=== PATIENT | male | born 1940 | race Caucasian/White ===

== ENCOUNTER → 2018-04-12 | Outpatient (CLI) | payer MEDICARE, BC ==
--- NOTE | 2018-04-12 09:01 | CT ---
EXAMINATION TYPE: CT lower extremity LT wo con, Prophecy protocol DATE OF EXAM: 04/12/2018 COMPARISON: None HISTORY: [age]-year-old male with left ankle pain, pre op planning TECHNIQUE: Contiguous axial scanning of the knee followed by the ankle without IV contrast. Coronal a nd sagittal reconstructions performed for preoperative planning purposes. CT DLP: 561 mGycm Automated exposure control for dose reduction was used. FINDINGS: Imaging performed for preoperative planning purposes. Knee: Incidental partially visualized lipoma in the upper medial gastrocnemius musculature measuring at andrae st 4.1 x 2.3 cm, partially visualized. There is suggestion of some bicompartmental joint space narrow ing, greater in the medial compartment and suggestion of some joint space narrowing in the lateral pa tellofemoral compartment. No knee joint effusion or Kennedy's cyst seen. Ankle: End-stage degenerative joint space narrowing with [id number] abutment, subchondral sclerosis, and s ubchondral cystic change at the tibiotalar joint. Multiple loose bodies are present posteriorly measu ring up to 1.1 cm. There is lesser degree of degenerative joint space narrowing along the middle subt alar joint as well. Corticated ossific fragments below the anterior colliculus of the medial malleolus suggesting sequela of prior deltoid ligament injury Underlying tibiotalar joint effusion. Osteopenia. IMPRESSION: PREOPERATIVE CT OF THE LEFT ANKLE AND KNEE, PROPHECY PROTOCOL, WITH DETAILS OF THE KNEE AND ANKLE ABOVE.
== END | disposition home or self-care (01) ==
LOC: RADCTMAIN 08:01
PROVIDERS: ATTEND Orthopaedic Surgery
DX: Z01.818 Encounter for other preprocedural examination (principal); M19.072 Primary osteoarthritis, left ankle and foot; M25.872 Other specified joint disorders, left ankle and foot; M24.072 Loose body in left ankle; M85.872 Other specified disorders of bone density and structure, left ankle and foot

== ENCOUNTER → 2018-05-24 | Outpatient (CLI) | payer MEDICARE, BC | END | disposition home or self-care (01) | LOC: LABPAT 14:39 | PROVIDERS: ATTEND Orthopaedic Surgery | DX: Z01.812 Encounter for preprocedural laboratory examination (principal) | CPT/HCPCS: 87070 ==

== ENCOUNTER 2018-05-30 06:34 | Inpatient (IN) | payer MEDICARE, BC ==
[2018-05-21 17:26] VITALS: BMI 31.8
[~2018-05-30 06:34] MED LIST: DEXAMETHASONE SOD PHOSPHATE 10 MG/ML 1 ML VIAL IV ONE; LIDOCAINE 1% 20 ML VIAL (10MG/ML) FOR IV START INTRADERMA PRN; MIDAZOLAM 2 MG/2 ML VIAL IV PRN; ONDANSETRON 4 MG/2 ML VIAL IVP ONE; SCOPOLAMINE 1.5MG/72HR PATCH TRANSDERM ONE; ceFAZolin IN SWFI 2 GM/20 ML SYRINGE IVP ONE
[2018-05-30] MEDS: LACTATED RINGERS 1,000 ML IV SCH (07:35)
[2018-05-30] MEDS ORDERED: HYDROcodone/APAP 5-325MG 1 EACH TAB PO PRN (08:25)
[2018-05-30] MEDS ORDERED: ONDANSETRON 4 MG/2 ML VIAL IVP PRN (08:25)
[2018-05-30] MEDS ORDERED: MAGNESIUM HYDROXIDE 2,400 MG/10 ML CUP PO PRN (08:25)
[2018-05-30] MEDS ORDERED: HYDROmorphone 1 MG/ML 1 ML SYRINGE IVP PRN (08:25)
[2018-05-30] MEDS ORDERED: NALOXONE 0.4 MG/ML 1 ML VIAL IV PRN (08:25)
[2018-05-30] MEDS ORDERED: ROPIVACAINE 5 MG/ML 30 ML VIAL ONE (08:32)
[2018-05-30] MEDS ORDERED: fentaNYL (PF) 50 MCG/ML 2 ML AMP ONE (08:32)
[2018-05-30] MEDS ORDERED: ePHEDrine SULFATE/0.9% NACL/PF 50 MG/5 ML SYRINGE IV ONE (08:32)
[2018-05-30] MEDS ORDERED: ROCURONIUM BROMIDE 10 MG/ML 10 ML VIAL IV ONE (08:32)
[2018-05-30] MEDS ORDERED: PROPOFOL 10 MG/ML 20 ML VIAL IV ONE (08:32)
--- NOTE | 2018-05-30 10:03 | P.ONQ ---
Anesthesiology Proc Note - PNB - Peripheral Nerve Block Performed Left Popliteal Single Time Out Performed: Yes Indication: Acute Post-Operative Pain, Analgesia, Requested by physician Sedation Type: Sedate with meaningful contact maintained Preparation: Sterile Prep Position: Supine Catheter: None Needle Size: 100mm (4") Needle Gauge: 21 Technique: Ultrasound Injectate: 0.5% Ropivacaine (see comment for volume) Blood Aspirated: No Pain Paresthesia on Injection Noted: No Resistance on Injection: Normal Events: Uneventful and Well Tolerated (ropi 20 ml)
--- NOTE | 2018-05-30 11:03 | FL ---
Fluoroscopy HISTORY: Ankle arthroplasty 1 minute 34 seconds fluoroscopy time supplied to the referring clinician. 10 intraoperative C-arm im ages document the procedure. See dictated report from orthopedic surgery.
--- NOTE | 2018-05-30 11:04 | XR ---
Left ankle HISTORY: Arthroplasty 10 intraoperative C-arm images document the procedure.
[2018-05-30] MEDS: HYDROmorphone 0.5 MG/0.5 ML SYRINGE IVP PRN ×2 (11:33→11:51)
[2018-05-30] MEDS ORDERED: LACTATED RINGERS 1,000 ML IV ONE ×2 (11:38)
--- NOTE | 2018-05-30 11:42 | P.OP ---
Date of Procedure: 05/30/18 Preoperative Diagnosis: 1. Left end-stage ankle arthritis 2. Left gastrocnemius equinus contracture Postoperative Diagnosis: Same Procedure(s) Performed: 1. Left total ankle arthroplasty with implant 2. Left gastrocnemius recession 3. Left application of short leg splint by physician Implants: SetJam Infinity Total ankle replacement size 4 tibia, size 3 INBONE talus Anesthesia: GETA, regional Surgeon: Galdino Beltran Estimated Blood Loss (ml): 10 IV fluids (ml): 450 Pathology: none sent Condition: stable Disposition: PACU Indications for Procedure: The patient is a very pleasant 77-year-old male with a long-standing history of problems with his left ankle. He's been treated nonsurgically with activity modification, bracing, anti-inflammatory pain medications, and corticosteroid injections. He also recently had an ankle arthroscopy by a hedis abstractor with minimal improvement in his symptoms. He was noted to have end-stage arthritic changes in the ankle. He came to discuss further treatment with me. We discussed continued nonsurgical treatment versus surgery. He requested surgery. Due to the complete loss of joint space, minimal deformity, and excellent preoperative range of motion I recommended a total ankle replacement versus an ankle fusion. We discussed the potential risks and benefits of both procedures. The patient agreed and requested a total ankle replacement. We discussed the potential risks and complications of surgery including but not limited to risk of anesthesia, superficial infection, deep infection, delayed wound healing, risk of intraoperative fracture, risk of postoperative fracture, risk of postoperative implant subsidence, risk of aseptic loosening, risk of failure of the implant, risk of deep infection requiring implant removal and antibiotic spacer, risk of stiffness, risk of chronic pain, risk of chronic swelling, risk of need for further surgery, risk of damage to local blood vessels or nerves, risk of DVT, risk of PE, risk of other medical complications , and possibly loss of life or limb. The patient voiced his understanding of this and provided his verbal and written consent to go forward with surgery. Operative Findings: The final fluoroscopic images after the implants and final poly had been inserted showed a radiolucent line in the distal metaphysis of the tibia on the mortise view. On clinical inspection there is a nondisplaced fracture on the distal medial metaphysis of the tibia. The tibial component was completely stable. I took a complete set of fluoroscopic images in multiple planes of the tibia from the ankle to the knee and no displacement was seen. Since the fracture was nondisplaced and the implant was stable I elected to leave the fracture alone. Following surgery I awknowledged the fracture with the patient' s family Description of Procedure: The patient was identified in preoperative holding and the correct left ankle was marked with my initials. I reviewed the consent form with the patient and all of his questions were answered. A preoperative popliteal and saphenous nerve block were placed. The patient was then brought back to the operating room. He was positioned on the OR table where general anesthetic and preoperative antibiotics were administered. A tourniquet was applied to the proximal aspect of the left thigh. The right leg was secured to the table with foam and tape. A bump was placed under the left buttock internally rotating the leg to neutral. A ramp was placed on the left leg to facilitate imaging. The remaining bony prominences were well-padded. A timeout was then performed identifying the correct patient, operative extremity, and procedure. The patient's leg was elevated, exsanguinated with an Esmarch, and the tourniquet was inflated to 250 mmHg. I began by performing a gastrocnemius recession. A 3 cm longitudinal incision was marked out 1 thumb breadth posterior to the tibia at the distal medial muscle belly of the gastrocnemius. Skin incision was made with a scalpel. Dissection was carried down carefully through subcutaneous tissue with tenotomy scissors. The superficial fascia was incised longitudinally in line with the skin incision. I bluntly developed the interval between the gastrocnemius aponeurosis and superficial fascia. The sural nerve was seen adherent to the superficial fascia. I then bluntly developed the interval between the gastrocnemius aponeurosis and soleus fascia. Modified right angle retractors were placed in both of these intervals isolating the gastrocnemius aponeurosis. I then sharply released the gastrocnemius aponeurosis from medial to lateral in its entirety. Following release there is a significant increase in dorsiflexion of the ankle. The sural nerve was identified and intact. The wound was then copiously irrigated and closed in layers. Attention was then turned to the ankle. A standard 10 mm anterior incision was marked out over the anterior aspect of the ankle. Skin incision was made a scalpel and I dissected carefully down to the subcu tennis tissue with tenotomy scissors. The superficial peroneal nerve was identified and carefully retracted. The extensor retinaculum was incised longitudinally in line with the skin incision area interval between the tibialis anterior and extensor hallucis longus tendon is identified and carefully dissected and exploited. Crossing vascular structures were controlled with electrocautery. An anterior arthrotomy was made to the ankle joint. There was a large amount of clear- colored synovial fluid. The visualized portion of the talar dome was completely devoid of articular cartilage. The soft tissue over the anterior aspect of the distal tibia was carefully removed with a scalpel and a small curet. Once all of the soft tissues off the distal tibia the custom cutting guide was held in place and pinned. The alignment was checked on a mortise view with fluoroscopy and compared to the preoperative templating. Once the cutting guide was deemed to be in acceptable position the remaining 3 pins were placed. The initial drill guide was then placed over the K wires and a drill was used to drill over the corners. A size 4 cutting block was then placed and secured. Position of the cutting block was verified on a mortise and lateral x- ray. Pins were placed in the gutters. The ankle was held at neutral and the talar pins were placed. Using a small microsagittal saw including saline 3 cuts were made in the tibia and one cut was made in the talar dome. All pins except more proximal tibia pins were removed and the cutting block was removed. The cut surface of the talar dome was removed. It was a small amount of bone in the posterior medial talus which was brought flush to the remaining cut surface of the talus with a saw. The cut tibial portion was then removed in one solid piece. The wound was copiously irrigated. Both the medial and lateral gutter were debrided. A size 4 tibial tray was then placed over the pins and gently levered into place with a lamina mother repairer. Its position was verified under lateral fluoroscopic shot. The broaches were then used to create a single posterior tract and to anterior approach rolls. A size 6 no meter poly-is then placed and a size 3 INBONE talus was inserted. The talar trial was manipulated until it sat in the correct position and was verified on a lateral and mortise fluoroscopic view. It was pinned into place. The anterior pegs were drilled. The ankle was plantar flexed and a pin was placed for the central stem of the talar component. The 2 smaller anterior pins were removed and the size 3 talar trial was removed. A reamer was used to create a path for the small central stem of the talar component. At this point the wound was copiously irrigated once again. The final tibia component was tapped into place. A protector was placed over the final tibial tray and the talar component was gently tapped into place until was fully seated. A size 6 mm trial poly-was placed and the ankle felt stable. A final 6 mm poly-was gently inserted. On inspection the ankle appeared to be balanced and both implants were stable and fully seated. Final lateral images showed a well-seated and stable appearing tibial and talar component. Maximum dorsiflexion and plantarflexion images were taken. A final mortise view was taken. There was a radial lucent line over the distal metaphysis of the tibia concerning for a fracture. I inspected the distal tibia and there did appear to be a nondisplaced fracture in the distal medial metaphysis of the tibia. I closely examined the tibial component which appeared to be completely stable. I used a [place] elevator at the interface between the implant and the tibia and there did not appear to be any evidence of loosening. Fluoroscopic images were taken in the ankle up to the knee including the whole tibia. On the lateral view the fracture was not visible and there did not appear to be any extension proximally. Due to the implant being stable and the fracture being completely nondisplaced I elected to treat it nonoperatively with observation. I discussed this with the family following surgery. The wound was then copiously irrigated. The capsule was closed with an interrupted 0 Vicryl. The retinaculum over the anterior extensor tendons were closed with a running 0 Vicryl. The deep subcu was reapproximated using 3-0 Monocryl. The skin was closed using 3-0 nylon Johnnygower modification of the Donati stitch area did brown quarter inch Steri-Strips were placed in between the stitches. A sterile dressing consisting of Betadine soaked Adaptic, 4 x 4, and web roll was applied. A well-padded bulky Haines splint was placed with the ankle at neutral. The tourniquet was let down for total tourniquet time of 88 minutes. The patient was then awoken from his anesthetic, transferred to a gurney, and brought to PACU without the procedure well. Plan: The patient is going to be admitted for pain control, IV antibiotics, a medicine consultation, physical therapy, and discharge planning. He is to remain strictly nonweightbearing on his left leg in his splint at all times. He will receive DVT prophylaxis with Lovenox while in-house he'll be discharged home on aspirin. He will need follow-up in the office in 2 weeks for splint removal, wound check, and 3 nonweightbearing views of the ankle.
[2018-05-30] MEDS: HYDROcodone/APAP 5-325MG 1 EACH TAB PO PRN ×2 (15:22→23:03)
[2018-05-30] MEDS: ENOXAPARIN 40 MG/0.4 ML SYRINGE SQ SCH (15:27)
--- NOTE | 2018-05-30 16:47 | P.CONS ---
History of Present Illness - Reason for Consult History of atrial fibrillation. - History of Present Illness Patient is a pleasant 77-year-old gentleman underwent left ankle arthroplasty. Patient's x-ray underwent surgery. Patient is comparing up in the surgical site area which is presently covered with a bandage. Patient denied any fever chills nausea vomiting abdominal pain. Patient does have history of irregular heartbeat as per the but not on any anticoagulation. Patient is on aspirin and Plavix although his cardiac catheterization and stent placement was more than 8 years ago. Patient's Plavix is on hold since last week for surgery. I do not have an EKG available on exam he has regular heart rhythm will obtain an EKG probably get medical records from his [facility] representative clinic. Patient will need to be on anticoagulation if he has history of A. fib. Patient is presently on Lovenox 40 mg subcutaneous daily which is DVT prophylactic dose. Was reinitiated back on aspirin. Patient is on sotalol and lisinopril. I'll get medical records from his [facility] representative clinic unsure why he is not on anticoagulation. We'll also get the opinion from cardiology regarding his long-term anticoagulation. Review of Systems REVIEW OF SYSTEMS: CONSTITUTIONAL: No fever, no malaise, no fatigue. HEENT: No recent visual problems or hearing problems. Denied any sore throat. CARDIOVASCULAR: No chest pain, orthopnea, PND, no palpitations, no syncope. PULMONARY: No shortness of breath, no cough, no hemoptysis. GASTROINTESTINAL: No diarrhea, no nausea, no vomiting, no abdominal pain. Normoactive bowel sounds. NEUROLOGICAL: No headaches, no weakness, no numbness. HEMATOLOGICAL: Denies any bleeding or petechiae. GENITOURINARY: Denies any burning micturition, frequency, or urgency. MUSCULOSKELETAL/RHEUMATOLOGICAL: Denies any joint pain, swelling, or any muscle pain. ENDOCRINE: Denies any polyuria or polydipsia. The rest of the 14-point review of systems is negative. Past Medical History Past Medical History: Coronary Artery Disease (CAD), Hearing Disorder / Deafness , Hyperlipidemia, Osteoarthritis (OA) Additional Past Medical History / Comment(s): LT ANKLE PROB. History of Any Multi-Drug Resistant Organisms: None Reported Past Surgical History: Appendectomy, Heart Catheterization With Stent Past Anesthesia/Blood Transfusion Reactions: No Reported Reaction Date of Last Stent Placement:: 1999 Additional Psychological History / Comment(s): "ANXIOUS ABOUT UPCOMING SURGERY, NORMAL KIND" Smoking Status: Former smoker Past Alcohol Use History: Occasional Additional Past Alcohol Use History / Comment(s): SMOKED 20 YEARS, QUIT 1970'S EST Past Drug Use History: None Reported - Past Family History Mother Family Medical History: Coronary Artery Disease (CAD) Medications and Allergies Home Medications Medication Instructions Recorded Confirmed Type Acetaminophen [Tylenol Extra 500 - 1,000 mg PO Q6H PRN 05/21/18 05/30/18 History Strength] Aspirin [Adult Low Dose Aspirin EC] 81 mg PO DAILY 05/21/18 05/30/18 History Clopidogrel Bisulfate [Plavix] 75 mg PO DAILY 05/21/18 05/30/18 History Multivitamins, Thera [Multivitamin 1 tab PO DAILY 05/21/18 05/30/18 History (formulary)] Ramipril [Altace] 5 mg PO DAILY 05/21/18 05/30/18 History Simvastatin 40 mg PO DAILY 05/21/18 05/30/18 History Sotalol [Betapace] 40 mg PO BID 05/21/18 05/30/18 History Allergies Allergy/AdvReac Type Severity Reaction Status Date / Time No Known Allergies Allergy Verified 05/30/18 15:02 Physical Exam Vitals: Vital Signs Temp Pulse Pulse Resp BP Pulse Ox 05/30/18 13:00 66 16 161/88 100 05/30/18 12:30 59 L 18 143/77 98 05/30/18 12:00 69 16 143/76 97 05/30/18 11:45 69 16 137/74 96 05/30/18 11:30 69 16 143/78 96 05/30/18 11:18 68 16 141/78 100 05/30/18 11:03 97.1 F L 71 16 138/88 99 05/30/18 07:18 67 16 142/74 97 Intake and Output 05/30/18 05/30/18 05/30/18 06:59 14:59 22:59 Intake Total 1175 Output Total 20 Balance 1155 Intake: IV 1175 Output: Estimated Blood Loss 20 Other: Weight 100.698 kg PHYSICAL EXAMINATION: GENERAL: The patient is alert and oriented x3, not in any acute distress. Well developed, well nourished. Morbid obesity HEENT: Pupils are round and equally reacting to light. EOMI. No scleral icterus. No conjunctival pallor. Normocephalic, atraumatic. No pharyngeal erythema. No thyromegaly. CARDIOVASCULAR: S1 and S2 present. No murmurs, rubs, or gallops. PULMONARY: Chest is clear to auscultation, no wheezing or crackles. ABDOMEN: Soft, nontender, nondistended, normoactive bowel sounds. No palpable organomegaly. MUSCULOSKELETAL: No joint swelling or deformity. Left ankle covered with a bandage EXTREMITIES: No cyanosis, clubbing, or pedal edema. NEUROLOGICAL: Gross neurological examination did not reveal any focal deficits. SKIN: No rashes. Assessment and Plan Plan: -Left ankle arthroplasty postoperative day 0: Pain management as per primary service. -History of atrial fibrillation resume on sotalol: Anti-coagulation management as mentioned in the history -Hypertension resume on lisinopril and monitor blood pressure -Coronary artery disease with the stents more than 80 years ago resumed on aspirin and Plavix will not be resumed at this time. -Hyperlipidemia
[2018-05-30] MEDS: ceFAZolin IN SWFI 2 GM/20 ML SYRINGE IVP SCH ×2 (17:12→22:59)
[2018-05-30] MEDS: SOTALOL 80 MG TAB PO SCH (20:39)
[2018-05-30] MEDS: SENNOSIDES-DOCUSATE SODIUM 1 EACH TAB PO SCH (20:39)
[2018-05-31] MEDS: ENOXAPARIN 40 MG/0.4 ML SYRINGE SQ SCH (08:05)
[2018-05-31] MEDS: ATORVASTATIN 20 MG TAB PO SCH (08:05)
[2018-05-31] MEDS: LISINOPRIL 20 MG TAB PO SCH (08:05)
[2018-05-31] MEDS: ASPIRIN 81 MG PO SCH (08:05)
[2018-05-31] MEDS: HYDROcodone/APAP 5-325MG 1 EACH TAB PO PRN ×3 (08:05→18:17)
[2018-05-31] MEDS: LACTATED RINGERS 1,000 ML IV SCH (08:07)
[2018-05-31 08:50] LABS: HCT 42.6 % (39.0-53.0); HGB 13.7 gm/dL (13.0-17.5); MCH 28.6 pg (25.0-35.0); MCHC 32.2 g/dL (31.0-37.0); MCV 88.8 fL (80.0-100.0); Mean Platelet Volume 6.6; Platelet Count 183 k/uL (150-450); RDW 13.2 % (11.5-15.5)
[2018-05-31] MEDS ORDERED: CLOPIDOGREL 75 MG TAB PO SCH (09:00)
[2018-05-31 09:04] LABS: Anion Gap 11 mmol/L; Blood Urea Nitrogen 15 mg/dL (9-20); Calcium 9.4 mg/dL (8.4-10.2); Carbon Dioxide 23 mmol/L (22-30); Chloride 105 mmol/L (98-107); Glucose 117 mg/dL (74-99); Potassium 4.3 mmol/L (3.5-5.1); Sodium 139 mmol/L (137-145)
--- NOTE | 2018-05-31 09:30 | P.DS ---
Providers Date of admission: 05/30/18 06:34 Expected date of discharge: 05/31/18 Attending physician: Galdino Beltran Consults: 05/30/18 08:25 Consult Physician Routine Consulting Provider: Max Pandey Consult Reason/Comments: post operative medical management Do you want consulting provider notified?: Yes 05/30/18 14:59 Consult Physician Routine Consulting Provider: Tracy Mcpherson Consult Reason/Comments: Medical managment Do you want consulting provider notified?: Yes 05/30/18 16:40 Consult Physician Routine Consulting Provider: Colin Levy Consult Reason/Comments: A.Fib history, rec regarding anticoagulation Do you want consulting provider notified?: Yes Primary care physician: Max Pandey - Discharge Diagnosis(es) (1) Osteoarthritis of left ankle Current Visit: Yes Status: Acute Priority: Medium (2) Status post left ankle joint replacement Patient was admitted to the OR on 05/30/2018 to undergo a Left total ankle arthroplasty with implant and Left gastrocnemius recession . He had failed conservative measures as an outpatient and desired to proceed with elective surgery after given informed consent. He underwent the above procedure which he tolerated well without complication. Postoperative hospital course has remained without complication. On day of discharge he is afebrile, vital signs stable, labs within acceptable ranges, tolerating by mouth meds and diet, voiding without difficulty, positive flatus, denies abdominal pain or calf pain , pain is controlled on oral pain medication and has no new complaints. Wound is benign, neurovascular status is intact, calf is soft and nontender, abdomen soft and nontender. Review of systems is negative for numbness, tingling, fever , chills, chest pain, shortness breath, nausea, vomiting, dizziness, headaches, slurred speech or other. Current Visit: Yes Status: Acute Procedures: 1. Left total ankle arthroplasty with implant 2. Left gastrocnemius recession 3. Left application of short leg splint by physician Patient Condition at Discharge: Good Plan - Discharge Summary Discharge Rx Participant: No New Discharge Prescriptions: New HYDROcodone/APAP 7.5-325MG [Roach 7.5-325] 1 - 2 each PO Q6HR PRN #56 tab PRN Reason: Pain No Action Multivitamins, Thera [Multivitamin (formulary)] 1 tab PO DAILY Acetaminophen [Tylenol Extra Strength] 500 - 1,000 mg PO Q6H PRN PRN Reason: Pain Sotalol [Betapace] 40 mg PO BID Simvastatin 40 mg PO DAILY Aspirin [Adult Low Dose Aspirin EC] 81 mg PO DAILY Ramipril [Altace] 5 mg PO DAILY Clopidogrel Bisulfate [Plavix] 75 mg PO DAILY Discharge Medication List Acetaminophen [Tylenol Extra Strength] 500 - 1,000 mg PO Q6H PRN 05/21/18 [ History] Aspirin [Adult Low Dose Aspirin EC] 81 mg PO DAILY 05/21/18 [History] Clopidogrel Bisulfate [Plavix] 75 mg PO DAILY 05/21/18 [History] Multivitamins, Thera [Multivitamin (formulary)] 1 tab PO DAILY 05/21/18 [History ] Ramipril [Altace] 5 mg PO DAILY 05/21/18 [History] Simvastatin 40 mg PO DAILY 05/21/18 [History] Sotalol [Betapace] 40 mg PO BID 05/21/18 [History] HYDROcodone/APAP 7.5-325MG [Roach 7.5-325] 1 - 2 each PO Q6HR PRN #56 tab [Rx] Follow up Appointment(s)/Referral(s): Galdino Beltran MD [Medical Doctor] - 2 Weeks Activity/Diet/Wound Care/Special Instructions: 1. Non-weight bearing on your operative leg 2. Use crutches, knee scooter or walker to ambulate 3. Keep splint clean and dry, do not remove 4. Take pain medications as directed 5. Follow-up in 2 weeks Discharge Disposition: HOME SELF-CARE
[2018-05-31] MEDS: SOTALOL 80 MG TAB PO SCH ×2 (09:46→20:21)
[2018-05-31 12:45] LABS: Appearance,Urine Clear (Clear); Bilirubin,Urine Negative (Negative); Blood,Urine Negative (Negative); Color,Urine Yellow; Glucose,Urine (UA) Negative (Negative); Ketones,Urine Negative (Negative); Leukocyte Esterase,Urine Negative (Negative); Nitrite,Urine Negative (Negative); Protein,Urine Negative (Negative); Urobilinogen,Urine <2.0 mg/dL (<2.0)
[2018-05-31] MEDS: MULTIVITAMINS, THERA 1 EACH TAB PO SCH (13:07)
[2018-05-31] MEDS: CLOPIDOGREL 75 MG TAB PO SCH (13:08)
--- NOTE | 2018-05-31 13:33 | P.CRDCN ---
History of Present Illness History of present illness: Mr. Campa is a pleasant 77-year-old male past medical history significant for coronary artery disease s/p angioplasty first 16 years ago and then 8 years later he had in-stent restenosis and required 2 more stents. He also has hypertension, dyslipidemia and osteoarthritis. He follows with Dr. Spain out of [facility]. We have been asked to see him in consultation regarding anti-platelet therapy. In speaking with the patient he states he has been on plavix and aspirin for the previous 8 years. He states when he first underwent stenting he was on plavix only for the recommended 1- year and subsequently had in-stent restenosis. For that reason his director of convention services told him he would be on this dual therapy indefinitely. He saw his director of convention services prior to surgery and there is a letter placed on the chart. Recommendations were made to stop dual antiplalet therapy for 7 days prior to surgery and resume as soon possible post-operatively. He underwent total left ankle arthroplasty with implant yesterday per Dr. Beltran. He is seen and examined sitting up in the chair eating lunch. He denies chest pain, shortness of breath , dizziness or palpitations. He is ready for discharge from an orhopedic standpoint. Current cardiac medications include aspirin 81 mg daily, Plavix 75 mg daily, ramipril 5 mg daily, simvastatin 40 mg daily and sotalol 40 mg twice a day. At the time of my exam: CONSTITUTIONAL: Denies fever. Denies chills. EYES: Denies blurred vision. Denies vision changes. Denies eye pain. EARS, NOSE, MOUTH & THROAT: Denies headache. Denies sore throat. Denies ear pain. CARDIOVASCULAR: Denies chest pain. Denies shortness of breath. Denies orthopnea. Denies PND. Denies palpitations. RESPIRATORY: Denies cough. GASTROINTESTINAL: Denies abdominal pain. Denies diarrhea. Denies constipation. Denies nausea. Denies vomiting. MUSCULOSKELETAL: Denies myalgias. INTEGUMENTARY: Denies pruitis. Denies rash. NEUROLOGIC: Denies numbness. Denies tingling. Denies weakness. PSYCHIATRIC: Denies anxiety. Denies depression. ENDOCRINE: Denies fatigue. Denies weight change. Denies polydipsia. Denies polyurina. GENITOURINARY: Denies burning, hematuria or urgency with micturation. HEMATOLOGIC: Denies history of anemia. Denies bleeding. Blood pressure 143/83 heart rate 78 afebrile maintaining oxygen saturation on room air GENERAL: This is a 77-year-old male in no apparent distress at the time of my examination. HEENT: Head is atraumatic, normocephalic. Pupils are equal, round. Sclerae anicteric. Conjunctivae are clear. Mucous membranes of the mouth are moist. Neck is supple. There is no jugular venous distention. No carotid bruit is heard. LUNGS: Clear to auscultation no wheezes, rales or rhonchi. No chest wall tenderness is noted on palpation or with deep breathing. HEART: Regular rate and rhythm with systolic ejection murmur at the base, no rubs or gallops. S1 and S2 heard. ABDOMEN: Soft, nontender. Bowel sounds are heard. No organomegaly noted. EXTREMITIES: No evidence of peripheral edema and no calf tenderness noted on the right. Left leg in cast up to the knee. VASCULAR: Radial and dorsalis pedis pulses palpated, right, no evidence of clubbing. NEUROLOGIC: Patient is awake, alert and oriented x3. ASSESSMENT Status post left ankle arthroplasty postoperative day #1 History of coronary artery disease Hypertension Dyslipidemia PLAN Obtain 2-D echocardiogram and Doppler study to assess cardiac structure and function secondary to physical exam finding of murmur. Resume Plavix as recommended by his primary director of convention services during his preoperative evaluation. Follow-up with his primary director of convention services upon discharge. Thank you kindly for this consultation. Nurse Practitioner note has been reviewed, I agree with a documented findings and plan of care. Patient was seen and examined. Past Medical History Past Medical History: Coronary Artery Disease (CAD), Hearing Disorder / Deafness , Hyperlipidemia, Osteoarthritis (OA) Additional Past Medical History / Comment(s): LT ANKLE PROB. History of Any Multi-Drug Resistant Organisms: None Reported Past Surgical History: Appendectomy, Heart Catheterization With Stent Past Anesthesia/Blood Transfusion Reactions: No Reported Reaction Date of Last Stent Placement:: 1999 Additional Psychological History / Comment(s): "ANXIOUS ABOUT UPCOMING SURGERY, NORMAL KIND" Smoking Status: Former smoker Past Alcohol Use History: Occasional Additional Past Alcohol Use History / Comment(s): SMOKED 20 YEARS, QUIT 1969'S EST Past Drug Use History: None Reported - Past Family History Mother Family Medical History: Coronary Artery Disease (CAD) Medications and Allergies Home Medications Medication Instructions Recorded Confirmed Type Acetaminophen [Tylenol Extra 500 - 1,000 mg PO Q6H PRN 05/21/18 05/30/18 History Strength] Aspirin [Adult Low Dose Aspirin EC] 81 mg PO DAILY 05/21/18 05/30/18 History Clopidogrel Bisulfate [Plavix] 75 mg PO DAILY 05/21/18 05/30/18 History Multivitamins, Thera [Multivitamin 1 tab PO DAILY 05/21/18 05/30/18 History (formulary)] Ramipril [Altace] 5 mg PO DAILY 05/21/18 05/30/18 History Simvastatin 40 mg PO DAILY 05/21/18 05/30/18 History Sotalol [Betapace] 40 mg PO BID 05/21/18 05/30/18 History HYDROcodone/APAP 7.5-325MG [[place] 1 - 2 each PO Q6HR PRN #56 tab 05/31/18 Rx 7.5-325] Allergies Allergy/AdvReac Type Severity Reaction Status Date / Time No Known Allergies Allergy Verified 05/30/18 15:02 Physical Exam Vitals: Vital Signs Temp Pulse Pulse Resp BP Pulse Ox 05/31/18 00:49 97.7 F 78 16 143/83 97 05/30/18 16:30 71 158/84 98 05/30/18 16:15 74 149/79 96 05/30/18 16:00 74 157/88 97 05/30/18 15:45 75 157/88 97 05/30/18 15:30 72 145/79 96 05/30/18 15:15 72 157/88 97 05/30/18 15:00 77 163/80 96 05/30/18 14:45 82 163/87 96 05/30/18 14:30 81 16 162/87 96 05/30/18 13:00 66 16 161/88 100 Intake and Output 05/30/18 05/31/18 05/31/18 22:59 06:59 14:59 Intake Total 60 590 240 Output Total 900 400 Balance 60 -310 -160 Intake: Intake, IV Titration 60 Amount Lactated Ringers 1,000 ml 60 @ 20 mls/hr IV .Q24H [facility] Rx#:[id number] Oral 590 240 Output: Urine 900 400 Other: # Voids 1 Results 05/31/18 07:40 05/31/18 07:40 CBC 05/31/18 Range/Units 07:40 WBC 14.0 H (3.8-10.6) k/uL RBC 4.80 (4.30-5.90) m/uL Hgb 13.7 (13.0-17.5) gm/dL Hct 42.6 (39.0-53.0) % Plt Count 183 (150-450) k/uL Comprehensive Metabolic Panel 05/31/18 Range/Units 07:40 Sodium 139 (137-145) mmol/L Potassium 4.3 (3.5-5.1) mmol/L Chloride 105 (98-107) mmol/L Carbon Dioxide 23 (22-30) mmol/L BUN 15 (9-20) mg/dL Creatinine 0.78 (0.66-1.25) mg/dL Glucose 117 H (74-99) mg/dL Calcium 9.4 (8.4-10.2) mg/dL Current Medications Generic Name Dose Route Start Last Admin Trade Name Freq PRN Reason Stop Dose Admin Hydrocodone Bitart/Acetaminophen 1 each 05/30/18 08:25 [place] 5-325 PO Q6HR PRN Pain Scale 1 to 5 Hydrocodone Bitart/Acetaminophen 2 each 05/30/18 08:25 05/31/18 08:05 [place] 5-325 PO 2 each Q6HR PRN Administration Pain Scale 6 to 10 Aspirin 81 mg 05/31/18 09:00 05/31/18 08:05 Aspirin PO 81 mg DAILY JIM Administration Atorvastatin Calcium 20 mg 05/31/18 09:00 05/31/18 08:05 Lipitor PO 20 mg DAILY JIM Administration Clopidogrel Bisulfate 75 mg 05/31/18 13:00 Plavix PO DAILY IJM Enoxaparin Sodium 40 mg 05/30/18 09:00 05/31/18 08:05 Lovenox SQ 40 mg DAILY JIM Administration Hydromorphone HCl 0.5 mg 05/30/18 08:25 Dilaudid IVP Q3HR PRN Pain Scale 7 to 10 Lactated Ringer's 1,000 mls @ 20 mls/hr 05/30/18 06:11 05/31/18 08:07 Lactated Ringers IV 20 mls/hr .Q24H JIM Administration Lidocaine HCl 0.1 ml 05/30/18 06:11 05/30/18 07:35 .Xylocaine 1% Inj (10mg/Ml) For Iv Start INTRADERMA 0.1 ml PER PROTOCOL PRN Administration IV Start Lisinopril 20 mg 05/31/18 09:00 05/31/18 08:05 Zestril PO 20 mg DAILY JIM Administration Magnesium Hydroxide 2,400 mg 05/30/18 08:25 Milk Of Magnesia PO DAILY PRN Constipation Multivitamins 1 each 05/31/18 12:00 Theragran PO DAILY@1200 JIM Naloxone HCl 0.2 mg 05/30/18 08:25 Narcan IV Q2M PRN Opioid Reversal Ondansetron HCl 4 mg 05/30/18 08:25 Zofran IVP Q24HR PRN Nausea And Vomiting Senna/Docusate Sodium 2 each 05/30/18 21:00 05/30/18 20:39 Senokot-S PO 2 each HS JIM Administration Sotalol HCl 40 mg 05/30/18 21:00 05/31/18 09:46 Betapace PO 40 mg BID JIM Administration Intake and Output 05/30/18 05/31/18 05/31/18 22:59 06:59 14:59 Intake Total 60 590 240 Output Total 900 400 Balance 60 -310 -160 Intake: Intake, IV Titration 60 Amount Lactated Ringers 1,000 ml 60 @ 20 mls/hr IV .Q24H [facility] Rx#:[id number] Oral 590 240 Output: Urine 900 400 Other: # Voids 1 05/31/18 07:40 05/31/18 07:40
--- NOTE | 2018-05-31 17:21 | PN ---
PROGRESS NOTE DATE OF SERVICE: 05/31/2018 This 77-year-old gentleman admitted after left ankle arthroplasty is improving significantly. No chest pain. No palpitations. No fever. Blood sugars mildly elevated. EXAM: GENERAL: Alert and oriented x3. VITAL SIGNS: Blood pressure 106/64, respirations 18, temperature 98.4, pulse ox 99% room air. HEENT: Conjunctivae normal. NECK: No jugular venous distention. CARDIOVASCULAR: S1, S2 muffled. RESPIRATORY: Breath sounds diminished in the bases. No rhonchi. No crackles. ABDOMEN: Soft and nontender. LEGS: Status post left ankle arthroplasty. NERVOUS SYSTEM: No focal deficits. LAB STUDIES: WBC 14, hemoglobin 13.7. ASSESSMENT: 1. Status post left total knee arthroplasty. 2. History of atrial fibrillation. 3. Hypertension. 4. History of coronary artery disease stent. 5. Hyperlipidemia. 6. Increased random blood sugar. RECOMMENDATIONS AND DISCUSSION: Recommend to continue current medications, management and symptomatic treatment. Follow up with primary physician. Otherwise rest of the recommendations per Orthopedic surgery. Thank you, Dr. Beltran. MMSTEFANIL / IJN: [id number] /
--- NOTE | 2018-05-31 17:51 | ECHOF ---
Referral Reason:murmur MEASUREMENTS -------- HEIGHT: 182.9 cm WEIGHT: 100.7 kg BP: IVSd: 1.1 cm (0.6 - 1.1) LVIDd: 4.9 cm (3.9 - 5.3) LVPWd: 1.1 cm (0.6 - 1.1) IVSs: 2.5 cm LVIDs: 2.0 cm LVPWs: 2.2 cm LAESV Index (A-L): 33.00 ml/m Ao Diam: 3.5 cm (2.0 - 3.7) AV Cusp: 1.0 cm (1.5 - 2.6) LA Diam: 3.7 cm (2.7 - 3.8) MV EXCURSION: 14.577 mm (> 18.000) MV EF SLOPE: 64 mm/s (70 - 150) EPSS: 0.8 cm MV E Zeke: 0.62 m/s MV DecT: 233 ms MV A Zeke: 0.72 m/s MV E/A Ratio: 0.86 AV maxP.95 mmHg AV meanP.82 mmHg RAP: 5.00 mmHg RVSP: 20.96 mmHg FINDINGS -------- Sinus rhythm. This was a technically good study. The left ventricular size is normal. Left ventricular wall thickness is normal. Overall left vent ricular systolic function is normal with, an EF between 55 - 60 %. Sigmoid shaped septum with focal hypertrophy of the basal septum. The remaining wall thickness is normal. The right ventricle is normal in size and function. LA is midly dilated 29-33ml/m2. The right atrium is normal in size. Aortic valve is trileaflet and is severely thickened. There is severe aortic stenosis present. Pe ak/mean gradient across the Aortic Valve is 70.95mmHg / 47.82mmHg. Mild mitral regurgitation is present. Mild tricuspid regurgitation present. The right ventricular systolic pressure, as measured by Doppl er, is 20.96mmHg. Pulmonic valve appears structurally normal. The aortic root size is normal. Normal inferior vena cava with normal inspiratory collapse consistent with estimated right atrial pre ssure of 5 mmHg. The pericardium is normal. CONCLUSIONS -------- 1. Sinus rhythm. 2. This was a technically good study. 3. The left ventricular size is normal. 4. Left ventricular wall thickness is normal. 5. Overall left ventricular systolic function is normal with, an EF between 55 - 60 %. 6. Sigmoid shaped septum with focal hypertrophy of the basal septum. The remaining wall thickness is normal. 7. The right ventricle is normal in size and function. 8. LA is midly dilated 29-33ml/m2. 9. The right atrium is normal in size. 10. Aortic valve is trileaflet and is severely thickened. 11. There is severe aortic stenosis present. 12. Peak/mean gradient across the Aortic Valve is 70.95mmHg / 47.82mmHg. 13. Mild mitral regurgitation is present. 14. Mild tricuspid regurgitation present. 15. The right ventricular systolic pressure, as measured by Doppler, is 20.96mmHg. 16. Pulmonic valve appears structurally normal. 17. The aortic root size is normal. 18. Normal inferior vena cava with normal inspiratory collapse consistent with estimated right atrial pressure of 5 mmHg. 19. The pericardium is normal. [employer]OR [employer]IMENT[employer]SEM[employer]: Alisha Nagy RDCS
[2018-05-31] MEDS: SENNOSIDES-DOCUSATE SODIUM 1 EACH TAB PO SCH (20:22)
[2018-06-01] MEDS: HYDROcodone/APAP 5-325MG 1 EACH TAB PO PRN ×3 (00:24→14:31)
[2018-06-01 01:37] VITALS: BP 104/60; PULSE 60; RESP 16; TEMP 97.6
[2018-06-01] MEDS: LACTATED RINGERS 1,000 ML IV SCH (08:15)
[2018-06-01] MEDS: ATORVASTATIN 20 MG TAB PO SCH (08:17)
[2018-06-01] MEDS: CLOPIDOGREL 75 MG TAB PO SCH (08:18)
[2018-06-01] MEDS: LISINOPRIL 20 MG TAB PO SCH (08:18)
[2018-06-01] MEDS: SOTALOL 80 MG TAB PO SCH (08:18)
[2018-06-01] MEDS: ASPIRIN 81 MG PO SCH (08:19)
[2018-06-01] MEDS: ENOXAPARIN 40 MG/0.4 ML SYRINGE SQ SCH (08:19)
[2018-06-01] MEDS ORDERED: traMADol 50 MG TAB PO PRN (10:50)
[2018-06-01] MEDS: MULTIVITAMINS, THERA 1 EACH TAB PO SCH (11:57)
--- NOTE | 2018-06-01 14:04 | P.PN ---
Subjective Progress Note Date: 06/01/18 Principal diagnosis: S/P left total ankle arthroplasty Patient is seen at bedside this morning. He is postop day #2 from left total ankle arthroplasty. He was planned to discharge yesterday however he was found to have a murmur that required further evaluation. He has pain at the surgical site as expected but denies any new complaints. He denies numbness, tingling or calf pain. Review of systems is negative for fever, chills, chest pain, shortness of breath or other Objective - Vital Signs Vital signs: Vital Signs Temp 97.6 F 06/01/18 01:16 Pulse 60 06/01/18 01:16 Resp 16 06/01/18 01:16 BP 104/60 06/01/18 01:16 Pulse Ox 95 06/01/18 01:16 Intake & Output 05/31/18 06/01/18 06/01/18 18:59 06:59 18:59 Intake Total 880 298 Output Total 400 1700 Balance 480 -1700 298 Intake: Intake, IV Titration 160 Amount Lactated Ringers 1,000 ml 160 @ 20 mls/hr IV .Q24H [facility] Rx#:[id number] Oral 720 298 Output: Urine 400 1700 Other: Voiding Method Urinal # Voids 3 1 - Exam Inspection reveals a well padded splint in place. There is no active bleeding or drainage. Neurovascular status is intact throughout the lower extremity with motor and sensation fully intact distally. Less than 2 second cap refill is present in all toes. - Constitutional General appearance: Present: no acute distress - Labs CBC & Chem 7: 05/31/18 07:40 05/31/18 07:40 Assessment and Plan (1) Osteoarthritis of left ankle Narrative/Plan: He will continue with routine postop orthopedic protocol including pain management, wound care, DVT prophylaxis and medical management. He can discharge to home from an orthopedic standpoint when ok with IM/cardiology. Current Visit: Yes Status: Acute Priority: Medium Code(s): M19.072 - PRIMARY OSTEOARTHRITIS, LEFT ANKLE AND FOOT SNOMED Code(s): 002237570653965 (2) Status post left ankle joint replacement Current Visit: Yes Status: Acute Code(s): Z96.662 - PRESENCE OF LEFT ARTIFICIAL ANKLE JOINT SNOMED Code(s): 547141942 Time with Patient: Less than 30
--- NOTE | 2018-06-01 20:07 | PN ---
PROGRESS NOTE DATE OF SERVICE: 06/01/2018 This 77-year-old gentleman who was admitted after left total knee arthroplasty improved significantly. No chest pain. No palpitations. No fever. EXAM: Alert and oriented x3. Pulse is 60, blood pressure 104/60, respiration 16, temperature 97.4, pulse ox 94% on room air. HEENT: Conjunctivae normal. Oral mucosa moist. Neck is no jugular venous distention. No carotid bruit. No lymph node enlargement. CARDIOVASCULAR: S1, S2. RESPIRATORY: Breath sounds diminished in the bases. No rhonchi, no crackles. ABDOMEN: Soft, nontender. LEGS: Status post surgery. NERVOUS SYSTEM: No focal deficits. LABS: WBC 14. UA unremarkable. ASSESSMENT: 1. Status post left total knee arthroplasty. 2. Increased WBC possibly reactive. 3. History atrial fibrillation. 4. Hypertension. 5. History of coronary artery disease, stent. 6. Hyperlipidemia. 7. Increased random blood sugar. RECOMMENDATIONS AND DISCUSSION: I recommend to continue current management and symptomatic treatment. Continue follow up with primary physician in the outpatient setting. Continue rest of medications. Further recommendations to follow. MMODL / IJN: [id number] /
== END 2018-06-01 14:36 | disposition home health service (06) | DRG 469 ==
LOC: 2ORMAIN 06:34 → 4SSUR 13:34
PROVIDERS: ADMIT Orthopaedic Surgery; ATTEND Orthopaedic Surgery
PROC: 0L8P0ZZ Division of Left Lower Leg Tendon, Open Approach (ICD-10-PCS; 2018-05-30)
PROC: 0SRG0JA Replacement of Left Ankle Joint with Synthetic Substitute, Uncemented, Open Approach (ICD-10-PCS; principal; 2018-05-30 08:30)
DX: M19.072 Primary osteoarthritis, left ankle and foot (principal); E66.01 Morbid (severe) obesity due to excess calories; I48.91 Unspecified atrial fibrillation; M24.572 Contracture, left ankle; I10 Essential (primary) hypertension; I25.10 Atherosclerotic heart disease of native coronary artery without angina pectoris; E78.5 Hyperlipidemia, unspecified; H91.90 Unspecified hearing loss, unspecified ear; Z68.31 Body mass index [BMI] 31.0-31.9, adult; Z79.82 Long term (current) use of aspirin; Z79.02 Long term (current) use of antithrombotics/antiplatelets; Z79.899 Other long term (current) drug therapy; Z90.49 Acquired absence of other specified parts of digestive tract; Z95.5 Presence of coronary angioplasty implant and graft; Z87.891 Personal history of nicotine dependence; Z96.652 Presence of left artificial knee joint; Z82.49 Family history of ischemic heart disease and other diseases of the circulatory system
CPT/HCPCS: 80048; 81003; 85027; 93005; 93306